=== PATIENT | female | born 1985 | race Caucasian/White ===

== ENCOUNTER 2018-11-03 05:19 | Inpatient (IN) | payer BC ==
[2018-11-01 09:18] LABS: BASOPHILS ABSOLUTE AUTO 0.01 K/mm3 (0.00-0.23); BASOPHILS PERCENT AUTO 0 % (0-2); EOSINOPHILS ABSOLUTE AUTO 0.05 K/mm3 (0.00-0.68); EOSINOPHILS PERCENT AUTO 1 % (0-6); Hematocrit 39.7 % (33.0-51.0); Hemoglobin 13.4 g/dL (11.5-16.0); IMMATURE GRAN ABSOLUTE AUTO 0.08 K/mm3 (0.00-0.10); IMMATURE GRAN PERCENT AUTO 1 % (0-1); LYMPHOCYTES ABSOLUTE AUTO 1.63 K/mm3 (0.84-5.20); LYMPHOCYTES PERCENT AUTO 22 % (21-46); MONOCYTES ABSOLUTE AUTO 0.43 K/mm3 (0.16-1.47); MONOCYTES PERCENT AUTO 6 % (4-13); Mean Corpuscular HGB 32.9 pg (26.0-34.0); Mean Corpuscular HGB Conc 33.8 g/dL (31.5-36.5); Mean Corpuscular Volume 98 fL (80-100); Mean Platelet Volume 10.6 fL (9.1-12.4); NEUTROPHILS ABSOLUTE AUTO 5.39 K/mm3 (1.96-9.15); NEUTROPHILS PERCENT AUTO 71 % (41-73); Platelet Count 159 K/mm3 (150-400); RDW Coefficient Variation 12.8 % (11.7-14.2); RDW Standard Deviation 45.3 fL (35.1-46.3); Red Blood Cell Count 4.07 M/mm3 (3.80-5.20); White Blood Cell Count 7.59 K/mm3 (4.00-11.30)
[~2018-11-03] VITALS: Ht 160 cm; Wt 0.3 kg
[~2018-11-03 05:19] MED LIST: IBUP800 PO; OXYACE5T PO; Verotin-Gr Cap1 EACH PO
--- NOTE | 2018-11-03 08:39 | NUR ---
Case delayed, emergency case upstairs in OR. Pt was walking to OR, per ly, stop abx, restart when we go back soon. Pt aware, attempting to relax, LR slowed.
[2018-11-03 10:25] LABS: PCO2 Cord - Arterial 55.7 mmHg (40-50); PO2 Cord - Arterial 16.1 mmHg (16-20); pH Cord - Arterial 7.32 (7.28-7.35)
[2018-11-03 10:28] LABS: PCO2 Cord - Venous 44.2 mmHg (40-50); PO2 Cord - Venous 34.5 mmHg (28-32); pH Umbilical Cord - Venous 7.37 (7.26-7.35)
--- NOTE | 2018-11-03 18:53 | NUR ---
KOKI DONE, SOLIS EMPITED. EATING DINNER. REPORT TO NOEXT SHIFT, NO ACTUE CHANGES.
[2018-11-04 05:49] LABS: Hematocrit 31.7 % (33.0-51.0); Hemoglobin 10.6 g/dL (11.5-16.0); Mean Corpuscular HGB 33.9 pg (26.0-34.0); Mean Corpuscular HGB Conc 33.4 g/dL (31.5-36.5); Mean Platelet Volume 10.6 fL (9.1-12.4); Platelet Count 140 K/mm3 (150-400); RDW Coefficient Variation 13.2 % (11.7-14.2); RDW Standard Deviation 48.8 fL (35.1-46.3); Red Blood Cell Count 3.13 M/mm3 (3.80-5.20); White Blood Cell Count 11.53 K/mm3 (4.00-11.30)
[2018-11-04 06:01] LABS: Mean Corpuscular Volume 101 fL (80-100)
--- NOTE | 2018-11-04 20:36 | NUR ---
fresh ice water given.
--- NOTE | 2018-11-05 03:26 | NUR ---
ASSUMED CARE AT [id number]
--- NOTE | 2018-11-05 09:59 | NUR ---
CONSULT. BF HER FIRST CHILD MAYBE 2 WEEKS AND QUIT DUE TO PAIN. NIPPLES ARE STARTING TO BREAKDOWN AGAIN. INSTRUCT/DEMO SELF EBM, MOM RELUCTANT TO TRY ON HERSELF, DROPS EXPRESS EASILY. SHE HAS BEEN USING FOOTBALL AND [id number] POSITIONS. BABY IS CURRENTLY ASLEEP IN [facility]. INSTRUCT/DEMO USE OF SHIELD IF HE HAS PROBLEMS LATCHING MILK COMES IN. WILL ASSESS SUCKLING TOMORROW IN [facility]. INSTRUCT IN CHANGES TO EXPECT DURING THE FIRST WEEK WITH BABY AND WITH FEEDINGS AND REFERRED TO PAGE 18 OF [facility] AND [facility] FOR PHOTOS AND INFORMATION. QUESTIONS ANSWERED.
[2018-11-05] MEDS ORDERED: Percocet 5-3251 EACH PO (10:14)
[2018-11-05] MEDS ORDERED: IBUP800 PO (10:14)
--- NOTE | 2018-11-05 11:25 | NUR ---
[facility] CALL[facility] INTO [facility]
--- NOTE | 2018-11-05 12:20 | NUR ---
DISCHARGED TO HOME
--- NOTE | 2018-11-06 07:59 | NUR ---
11/06/18 0759 Mary Buckley VERIFICATIONS: EDIT CHART.
== END 2018-11-05 12:19 | disposition home or self-care (01) | DRG 788 ==
LOC: BC 05:19
PROVIDERS: ADMIT Obstetrics & Gynecology
PROC: 10D00Z1 Extraction of Products of Conception, Low, Open Approach (ICD-10-PCS; principal; 2018-11-03 07:30)
DX: O34.211 Maternal care for low transverse scar from previous cesarean delivery (principal); O69.81X0 Labor and delivery complicated by cord around neck, without compression, not applicable or unspecified; O77.0 Labor and delivery complicated by meconium in amniotic fluid; Z3A.39 39 weeks gestation of pregnancy; Z37.0 Single live birth
CPT/HCPCS: 36415; 82803; 85025; 85027; 86850; 86870; 86900; 86901; J0690; J1885; J2370; J2405; J2590; J2765; J3010; J7120

== ENCOUNTER → 2019-08-14 | Outpatient (CLI) | payer BC ==
[~2019-08-14] MED LIST changes: +Percocet 5-3251 EACH PO
== END | disposition home or self-care (01) ==
LOC: PLD 11:10 → LAB SHORT 11:10
DX: D22.72 Melanocytic nevi of left lower limb, including hip (principal)
CPT/HCPCS: 88305

== ENCOUNTER → 2020-12-23 | Outpatient (CLI) | payer BC ==
[2020-12-25 14:08] LABS: HPV 16 Negative (Negative); HPV 18 Negative (Negative); HPV OTHER HR TYPES Negative (Negative)
== END ==
LOC: LAB SHORT 13:06
PROVIDERS: Nurse Practitioner Family
DX: Z01.419 Encounter for gynecological examination (general) (routine) without abnormal findings (principal)
CPT/HCPCS: 87624; G0145